=== PATIENT | female | born 1975 | race Caucasian/White ===

== ENCOUNTER → 2016-09-09 | Outpatient (CLI) | payer BC ==
--- NOTE | 2016-09-10 10:14 | ECHOF ---
Referral Reason:Lymphoma C81.10 and chemo exposure Z01.818 MEASUREMENTS -------- HEIGHT: 160.0 cm WEIGHT: 56.7 kg BP: 114/65 RVIDd: 2.5 cm (< 3.3) IVSd: 0.8 cm (0.6 - 1.1) LVIDd: 4.0 cm (3.9 - 5.3) LVPWd: 0.9 cm (0.6 - 1.1) IVSs: 1.1 cm LVIDs: 2.6 cm LVPWs: 1.5 cm LA Diam: 2.8 cm (2.7 - 3.8) LAESV Index (A-L): 24.61 ml/m Ao Diam: 2.3 cm (2.0 - 3.7) AV Cusp: 1.9 cm (1.5 - 2.6) MV EXCURSION: 14.577 mm (> 18.000) MV EF SLOPE: 81 mm/s (70 - 150) EPSS: 0.9 cm MV E Ashish: 0.66 m/s MV DecT: 261 ms MV A Ashish: 0.62 m/s MV E/A Ratio: 1.08 FINDINGS -------- Sinus rhythm. This was a technically good study. The left ventricular size is normal. Left ventricular wall thickness is normal. Overall left ventricular systolic function is normal with, an EF between 60 - 65 %. The right ventricle is normal in size. Normal LA size by volume 22+/-6 ml/m2. The right atrium is normal in size. The aortic valve is trileaflet and appears structurally normal. The mitral valve is normal. Trace tricuspid regurgitation present. Right ventricular systolic pressure is normal at < 35 mmHg. Trace/mild (physiologic) pulmonic regurgitation. The aortic root size is normal. The inferior vena cava is mildly dilated. There is no pericardial effusion. CONCLUSIONS -------- 1. Sinus rhythm. 2. The mitral valve is normal. 3. Trace tricuspid regurgitation present. 4. Right ventricular systolic pressure is normal at < 35 mmHg. 5. Trace/mild (physiologic) pulmonic regurgitation. 6. The aortic root size is normal. 7. The inferior vena cava is mildly dilated. 8. There is no pericardial effusion. 9. This was a technically good study. 10. The left ventricular size is normal. 11. Left ventricular wall thickness is normal. 12. Overall left ventricular systolic function is normal with, an EF between 60 - 65 %. 13. The right ventricle is normal in size. 14. Normal LA size by volume 22+/-6 ml/m2. 15. The right atrium is normal in size. 16. The aortic valve is trileaflet and appears structurally normal. SOCK LINING STITCHER: Josie Sterling RDCS
== END | disposition home or self-care (01) ==
LOC: RADECHMAIN 14:43
PROVIDERS: ATTEND Internal Medicine Hematology & Oncology
DX: C85.90 Non-Hodgkin lymphoma, unspecified, unspecified site (principal); I07.1 Rheumatic tricuspid insufficiency; I37.1 Nonrheumatic pulmonary valve insufficiency
CPT/HCPCS: 93306

== ENCOUNTER → 2016-11-28 | Outpatient (CLI) | payer BC ==
--- NOTE | 2016-11-30 09:43 | PE ---
EXAMINATION TYPE: PET CT fusion skull to thigh DATE OF EXAM: 11/28/2016 11:29 AM COMPARISON: PET/CT July 18, 2016 and prior study May 02, 2016 HISTORY: Lymphoma bilateral neck progress study TECHNIQUE: Following the intravenous administration of 12.97 mCi of F-18 FDG, whole body images are performed from the skull base to the midthigh. Images are reviewed on the computer in the coronal, a xial, and sagittal planes. Reconstructed rotating images are created on independent workstation and reviewed on the computer. A localization and attenuation correction CT is performed in conjunction with the PET scan. SCAN: Prior PET/CT July 18, 2016 FINDINGS: SKULL BASE AND NECK: There is persistent subcentimeter focus of abnormal hypermetabolic uptake left hyoid level at region of epiglottis on axial image 38 uncertain etiology unchanged in appearance from most recent PET/CT, max SUV is 3.7. CHEST, MEDIASTINUM, AND HILAR REGION: There is new area masslike consolidation posterior right lower lobe measuring 2.8 x 1.4 cm, max SUV is 4.66. There is additional multifocal areas of masslike consol idation in the right lung base laterally on axial image 106 without increased hypermetabolic uptake. Additional area of nodular consolidation or involvement right midlung laterally on axial image 90 wit hout abnormal hypermetabolic uptake. Additional nonhypermetabolic nodular consolidation left lingula on axial image 99 is noted. A multifocal pneumonia or infectious process needs to BE considered No suspicious hypermetabolic uptake is seen supraclavicular, mediastinal, and right axillary regions at area of original adenopathy or neoplasm. Persistent prominent lymph nodes are identified which con tinue to appear smaller in size. For reference central right axillary lymph node behind pectoralis mu scles at level of Mediport catheter measures 2.1 x 0.7 cm on current study axial image 67 versus 3.1 x 1.2 cm on prior study axial image 65. Prominent enlarged thoracic lymph nodes without abnormal hype rmetabolic uptake involving paratracheal region, prevascular region, and subcarinal region are all re demonstrated. ABDOMEN AND PELVIS: No new areas of abnormal hypermetabolic uptake are seen in the abdomen or pelvis. OSSEOUS STRUCTURES: No suspicious hypermetabolic uptake is seen in osseous structures. OTHER CT: There is stable right internal jugular Mediport catheter. Scattered pelvic phleboliths are seen. IMPRESSION: Overall stable findings from most recent prior PET/CT. Persistent enlarged lower neck and thoracic lymph nodes without abnormal hypermetabolic uptake, measurable enlarged lymph node in deep right axilla posterior to the pectoralis continues to diminish in size. Stable subcentimeter hypermet abolic focus left vallecula of uncertain etiology but not typical level of lymphoma. No new areas of adenopathy or hypermetabolic uptake are identified. EORTC response criteria: Complete Metabolic Response. MaxSUV < 2.5 or equivalent to background
== END | disposition home or self-care (01) ==
LOC: RADPETMAIN 09:23
PROVIDERS: ATTEND Internal Medicine Hematology & Oncology
DX: R59.0 Localized enlarged lymph nodes (principal); R93.0 Abnormal findings on diagnostic imaging of skull and head, not elsewhere classified; C85.90 Non-Hodgkin lymphoma, unspecified, unspecified site
CPT/HCPCS: 78815; A9552

== ENCOUNTER → 2018-01-01 | Outpatient (CLI) | payer BC ==
--- NOTE | 2018-01-02 17:02 | PE ---
EXAMINATION TYPE: PET CT fusion skull to thigh DATE OF EXAM: 01/01/2018 COMPARISON: NONE Prior PET/CT: 06/26/2017 HISTORY: Hodgkin's lymphoma TECHNIQUE: Following the intravenous administration of 15.73 mCi of F-18 FDG, whole body images are performed from the skull base to the midthigh. Images are reviewed on the computer in the coronal, a xial, and sagittal planes. Reconstructed rotating images are created on independent workstation and reviewed on the computer. A localization and attenuation correction CT is performed in conjunction with the PET scan. DLP: 194.80 mGycm SCAN: Subsequent follow-up Blood glucose: 85 mg/dL Average Mediastinum SUV: 1.8 Average Liver SUV: 1.26 FINDINGS: NECK: There is a focus of radiotracer accumulation within the left soft tissues adjacent to the spin ous process. Axial Fused image 46. SUV value 2.8. THORAX: There are several enlarged axillary lymph nodes larger on the right. These have elevated upta ke, greatest is in the right axillary region axial diffusion image 69. SUV value 2.4. Additional smal ler nodes in the right axillary region and intense uptake measuring 3.6 and 3.4, axial pet image 72. Some uptake within the left axillary small lymph nodes measures in the range of 1.9 - 2.0. No suspicious uptake within the mediastinum or hilar region is evident. ABDOMEN: No suspicious uptake PELVIS: There is some focal radiotracer accumulation within the right inguinal lymph node. PET. Image 227. SUV value 2.3. OSSEOUS STRUCTURES: No abnormal uptake LOCALIZATION CT: Some left inguinal adenopathy is present. There appears to be some right iliac chain adenopathy without significant uptake. The ascending thoracic aorta at the level of main pulmonary a rtery is 2.6 cm. Main pulmonary artery the bifurcation is 2.4 cm. COMPARISON: Uptake adjacent to the spinous process of C6 appears to be new. The largest of the left a xillary lymphadenopathy has diminished in size. Previous right axillary uptake in the range of 3-4.1. Uptake about the bilateral shoulders is stable. Uptake within the right inguinal lymph node has incr eased. The lymph node currently measuring 1.2 cm in the right inguinal region is stable in size. The number of inguinal lymph nodes may be diminished and the uptake on the left appears diminished IMPRESSION: 1. Continued uptake within the bilateral axillary lymph nodes. The largest lymph node is on the right the most intense activity is on the left, activity is diminished over the interval. 2. A new soft tissue uptake adjacent to the spinous process of C6. A metastatic lesion is not exclude d. 3. Right inguinal lymph node uptake.The lymph node is larger and the uptake is increased compatible w ith lymphoma.
== END | disposition home or self-care (01) ==
LOC: RADPETMAIN 10:27
PROVIDERS: ATTEND Internal Medicine Hematology & Oncology
DX: R59.1 Generalized enlarged lymph nodes (principal)
CPT/HCPCS: 78815; A9552

== ENCOUNTER → 2018-06-25 | Outpatient (CLI) | payer BC ==
--- NOTE | 2018-06-28 15:45 | PE ---
Nuclear medicine PET/CT HISTORY: Lymphoma, subsequent Patient received 11.7 mCi F-18 FDG intravenously in delayed scanning was performed from the skull bas e to the mid thighs. Localization and attenuation correction CT scan was performed. Correlation to prior nuclear medicine PET/CT 01/01/2018 Neck and chest: There is no evident cervical or supraclavicular adenopathy. Bilateral axillary nodes are present, largest node on the right measures short axis of approximately 13 to 14 mm, there is mil d hypermetabolic uptake in the bilateral axillary nodes, SUV is approximately 1.9 on the right, 1.5 o n the left. There is no evident lung mass. Mediastinal nodes show similar appearance. No pleural or p ericardial effusion. ABDOMEN: Ovarian cystic lesions are present, suspect some physiologic activity within the pelvis. No evident adenopathy, there is some mild increased uptake along the sidewalls however, SUV is 3.3 on t he right, 2.7 on the left. Mild uptake also noted within the inguinal nodes which are not enlarged, s imilar findings seen on prior exam, SUV only 1.7-1.9 on the right, 1.2. Aorta shows normal caliber. Osseous structures: The spinous process uptake in the cervical spine is improved, only mild activity, SUV 1.2. Hypermetabolic uptake at the sternoclavicular joints is noted. IMPRESSION: There is improvement in the hypermetabolic uptake within the axilla bilaterally, the spin ous process of the lower cervical spine and the inguinal nodes.
== END | disposition home or self-care (01) ==
LOC: RADPETMAIN 09:56
PROVIDERS: ATTEND Internal Medicine Hematology & Oncology
DX: C81.01 Nodular lymphocyte predominant Hodgkin lymphoma, lymph nodes of head, face, and neck (principal)
CPT/HCPCS: 78815; A9552

== ENCOUNTER → 2019-06-30 | Outpatient (CLI) | payer BC ==
--- NOTE | 2019-07-04 09:41 | PE ---
Nuclear medicine PET/CT HISTORY: Lymphoma, subsequent Patient received 10.7 mCi F-18 FDG intravenously in delayed scanning was performed from skull base to the mid thighs. Localization and attenuation correction CT scan was performed. Correlation to prior nuclear medicine PET/CT 06/25/2018 neck And chest: The axillary nodes seen on prior exam have change, dominant nodule in the left axilla currently measures 15 mm in short axis as on prior measured approximately 11 mm., Current SUV 1.9 Do minant nodule in the right axillary location measures 16 to 17 mm increased from approximately 13 to 14 mm. There is associated hypermetabolic uptake identified. SUV value 2.8. No evident change in medi astinal or hilar adenopathy, retrocaval pretracheal node again measures approximately 11 mm in short axis similar to prior. No evident worrisome lung mass. Subpleural nodule on axial image 73 in the rig ht upper lobe measures approximately 5 mm similar to prior exam, there is no pleural pericardial effu hazel. There is no splenomegaly or retroperitoneal adenopathy. There is no ascites. Low dense focus associat ed with the right ovary measures approximately 2 cm. Inguinal nodes show a similar appearance, no sig nificant hypermetabolic uptake. Small focus of hypermetabolic uptake along the right pelvic sidewall shows SUV value 4.2 and is indeterminate. Right inguinal node is not enlarged, SUV only 1.7. Osseous structures are unremarkable. IMPRESSION: Slight interval growth in axillary nodes, additional findings as described.
== END | disposition home or self-care (01) ==
LOC: RADPETMAIN 13:24
PROVIDERS: ATTEND Internal Medicine Hematology & Oncology
DX: C81.14 Nodular sclerosis Hodgkin lymphoma, lymph nodes of axilla and upper limb (principal)
CPT/HCPCS: 78815; A9552

== ENCOUNTER → 2020-01-12 | Outpatient (CLI) | payer BC ==
--- NOTE | 2020-01-15 12:35 | PE ---
Nuclear medicine PET/CT HISTORY: Hodgkin's lymphoma, subsequent Patient received 12 mCi F-18 FDG intravenously in delayed scanning was performed from skull base to t he mid thighs. Localization and attenuation correction CT scan was performed. Correlation to prior nuclear medicine PET/CT 06/30/2019 Chest and neck: No evident cervical or supraclavicular adenopathy. Bilateral axillary adenopathy is a gain seen similar in appearance, SUV on the right 2.5 and on the left 1.7, similar. Mediastinal uptak e is not significant, adenopathy is likely similar. There is no evident lung mass. No pleural or reyna cardial effusion. Subpleural possible granuloma in the right upper lobe, right middle lobe again note d. Right lobe thyroid nodule shows some uptake, SUV 2.3. ABDOMEN: There is no retroperitoneal adenopathy or ascites. Liver shows low attenuation possibly due to hepatic steatosis, liver is enlarged. No change in inguinal nodes, only mild uptake. Suspect a pos sible left ovarian cyst. Along the pelvic sidewalls there is some uptake which may correspond to none nlarged nodes, on the left SUV 3 and 3.3, on the right SUV 3.4. Osseous structures: Focus in the acetabular roof on the right shows an SUV of 1.8. Uptake in the acro mioclavicular joints, sternoclavicular joints is likely degenerative. IMPRESSION: Left pelvic uptake is an interval change and may correspond to hypermetabolic unenlarged nodes.
== END | disposition home or self-care (01) ==
LOC: RADPETMAIN 13:27
PROVIDERS: ATTEND Internal Medicine Hematology & Oncology
DX: C81.14 Nodular sclerosis Hodgkin lymphoma, lymph nodes of axilla and upper limb (principal)
CPT/HCPCS: 78815; A9552

== ENCOUNTER → 2020-12-27 | Outpatient (CLI) | payer BC ==
--- NOTE | 2020-12-30 05:49 | PE ---
EXAMINATION TYPE: PET CT fusion skull to thigh DATE OF EXAM: 12/27/2020 COMPARISON: Prior PET/CT January 12, 2020 and older studies. HISTORY: Hodgkin's Lymphoma diagnosed on neck biopsy April 2016 completed chemotherapy October 2016. TECHNIQUE: Following the intravenous administration of 11.13 mCi of F-18 FDG, whole body images are performed from the skull base to the midthigh. Images are reviewed on the computer in the coronal, a xial, and sagittal planes. Reconstructed rotating images are created on independent workstation and reviewed on the computer. A localization and attenuation correction CT is performed in conjunction with the PET scan. Blood glucose level equals 67. SCAN: Subsequent Scan FINDINGS: FINDINGS: Mean SUV mediastinum: 0.84 Mean SUV liver: 1.86 SKULL BASE AND NECK: Stable prominent mildly hypermetabolic bilateral axillary lymph nodes, max SUV i s less than 2.5 on current study bilaterally. The max SUV decreased from prior. Measured highest righ t axilla is at 2.02 current study. Stable mild hypermetabolic uptake right thyroid lobe. Max SUV less than 2.5 is 2.15 study. No new areas of abnormal hypermetabolic uptake. CHEST, MEDIASTINUM, AND HILAR REGION: No new areas of abnormal hypermetabolic uptake. No new or enlar ging adenopathy. ABDOMEN AND PELVIS: No new areas of abnormal hypermetabolic uptake are seen in the abdomen or pelvis. Normal excretion. OSSEOUS STRUCTURES: No suspicious hypermetabolic uptake is seen in osseous structures. OTHER CT: Scattered pelvic phleboliths are seen. Anteverted uterus. IMPRESSION: No new or worsening areas of adenopathy or increasing hypermetabolic uptake.
== END | disposition home or self-care (01) ==
LOC: RADPETMAIN 08:13
PROVIDERS: ATTEND Internal Medicine Hematology & Oncology
DX: Z85.71 Personal history of Hodgkin lymphoma (principal)
CPT/HCPCS: 78815; A9552